=== PATIENT | male | born 1940 | race Two or more races ===

== ENCOUNTER 2022-12-16 20:11 | Emergency (ER) | payer OTHER ==
[~2022-12-16] VITALS: Ht 177.8 cm; Wt 113.0 kg
[2022-12-16 20:34] VITALS: BP 186/87
[2022-12-16] MEDS ORDERED: IPRATROPIUM/ALBUTEROL 0.5-3(2.5)MG/3ML NEB HHN ONE (20:45)
[2022-12-16] MEDS ORDERED: PREDNISONE 20MG TABLET PO ONE (20:45)
[2022-12-16 21:35] VITALS: PULSE 87; RESP 20; O2SAT 97
[2022-12-16 21:52] LABS: BASOPHILS % 0.5 % (0.0-2.0); EOSINOPHILS % 9.1 % (0.0-5.0); LYMPHOCYTES % 22.8 % (20.0-50.0); MEAN CORPUSCULAR HEMOGLOBIN 30.6 pg (28.0-32.0); MEAN CORPUSCULAR HGB CONC 33.4 g/dL (31.0-37.0); MEAN CORPUSCULAR VOLUME 91.7 fL (80.0-94.0); MEAN PLATELET VOLUME 8.3 fl (7.4-10.4); MONOCYTES % 12.5 % (2.0-8.0); NEUTROPHILS % 55.1 % (40.0-76.0); PLATELET 202 x1000/uL (130-400); RED BLOOD CELL COUNT 3.59 mill/uL (4.7-6.1); RED CELL DISTRIBUTION WIDTH 16.5 % (11.6-14.6); WHITE BLOOD COUNT 8.9 x1000/uL (4.5-11.0)
[2022-12-16 21:57] LABS: CHLORIDE 110 mEq/L (98-107); INDEX HEMOLYSI 1 (1-3); INDEX ICTERIC 1 (1-4); INDEX LIPEMIC 1 (1-3); POTASSIUM 4.8 mEq/L (3.5-5.1); SODIUM 138 mEq/L (136-145)
[2022-12-16 22:06] LABS: ALBUMIN 3.5 g/dL (3.4-5.0); CALCIUM 8.3 mg/dL (8.5-10.1); CARBON DIOXIDE 26 mEq/L (21-32); CREATININE 2.6 mg/dL (0.6-1.3); GLUCOSE 117 mg/dL (70-105); PROTEIN TOTAL 7.6 g/dL (6.0-8.3); UREA NITROGEN BLOOD 39 mg/dL (7-21)
[2022-12-16 22:07] LABS: ALANINE AMINOTRANSFERASE 27 IU/L (13-61); ASPARTATE AMINOTRANSFERASE 13 IU/L (15-37); BILIRUBIN TOTAL 0.4 mg/dL (0.1-1.0); NT PRO B-TYPE NATRIURETIC PEP 1052 pg/mL (5-125); TROPONIN I HIGH SENSITIVITY 16 ng/L (<78)
[2022-12-16] MEDS ORDERED: P50 MT (23:16)
[2022-12-16 23:27] VITALS: PULSE 87; RESP 20; TEMP 99.2
== END 2022-12-16 23:32 | disposition home or self-care (01) ==
LOC: ER 20:11
DX: J44.1 Chronic obstructive pulmonary disease with (acute) exacerbation (principal); J18.9 Pneumonia, unspecified organism; I11.0 Hypertensive heart disease with heart failure; I50.9 Heart failure, unspecified; Z95.0 Presence of cardiac pacemaker
CPT/HCPCS: 99285; 71045; 80053; 83880; 85025; 84484; 36415; 94640; 93005; J7512